=== PATIENT | male | born 1980 | race Caucasian/White ===

== ENCOUNTER → 2024-08-06 10:07 | Outpatient (REF) | payer OTHER, SELFPAY ==
[2024-08-06 12:29] LABS: Rubella Low Positive
[2024-08-08 05:12] LABS: Quantiferon Plus TB1 minus NIL 0.02 IU/mL (<=0.34); Quantiferon TB Gold Plus Negative (Negative)
== END ==
LOC: REG 10:07
PROVIDERS: ATTENDING PHYSICIAN Nurse Practitioner Family
DX: Z23 Encounter for immunization (principal)
CPT/HCPCS: 36415; 86480; 86735; 86762; 86765; 86787